=== PATIENT | female | born 1960 | race Caucasian/White ===

== ENCOUNTER 2017-12-13 23:47 | Emergency (ER) | payer BC ==
[~2017-12-13] VITALS: Ht 165.1 cm; Wt 63.5 kg
[2017-12-13] MEDS ORDERED: SIMVASTATIN1 GM (23:57)
[2017-12-13] MEDS ORDERED: LISINOPRIL1 GM (23:57)
[2017-12-13] MEDS ORDERED: PROGESTERO50 MG/1 M1 (23:57)
[2017-12-13] MEDS ORDERED: LEVOTHYROXINE0.5 GM MISC (23:58)
[2017-12-13] MEDS ORDERED: WELLBUTRIN SR100 MG (23:58)
[2017-12-13] MEDS ORDERED: VENTOLIN HFA18 GM INH (23:59)
[2017-12-13] MEDS ORDERED: ZESTRIL5 MG (23:59)
== END 2017-12-14 01:34 | disposition home or self-care (01) ==
LOC: ED 23:47
DX: T78.49XA Other allergy, initial encounter (principal); I10 Essential (primary) hypertension; Z87.891 Personal history of nicotine dependence; Z79.899 Other long term (current) drug therapy
CPT/HCPCS: 96372; 99283; J1200